=== PATIENT | female | born 1995 | race Caucasian/White ===

== ENCOUNTER 2017-09-02 00:45 | Emergency (ER) | payer BC ==
--- NOTE | 2017-09-02 00:48 | EDPHY ---
H & P Time Seen by Provider: 09/02/17 00:47 HPI/ROS: HPI CHIEF COMPLAINT: Dysuria, urinary frequency x3 hours HISTORY OF PRESENT ILLNESS: Patient 22-year-old female, presents emergency room with dysuria, urinary frequency and hematuria x3 hours. She denies any vomiting, fever back pain or significant abdominal pain. Denies being or vaginal discharge. Past Medical History: No significant medical history Past Surgical History: No significant surgical history Social History: A [employer] student, lives locally. Denies drugs alcohol tobacco. Family History: Noncontributory ROS REVIEW OF SYSTEMS: A comprehensive 10 point review of systems is otherwise negative aside from elements mentioned in the history of present illness. Exam Constitutional appears well nontoxic no acute distress, triage nursing summary reviewed, vital signs reviewed, awake/alert. Eyes normal conjunctivae and sclera, EOMI, PERRLA. HENT normal inspection, atraumatic, moist mucus membranes, no epistaxis, neck supple/ no meningismus, no raccoon eyes. Respiratory clear to auscultation bilaterally, normal breath sounds, no respiratory distress, no wheezing. Cardiovascular rate normal, regular rhythm, no murmur, no edema, distal pulses normal. Gastrointestinal soft, non-tender, no rebound, no guarding, normal bowel sounds, no distension, no pulsatile mass. Genitourinary no CVA tenderness. Musculoskeletal no midline vertebral tenderness, full range of motion, no calf swelling, no tenderness of extremities, no meningismus, good pulses, neurovascularly intact. Skin pink, warm, & dry, no rash, skin atraumatic. Neurologic awake, alert and oriented x 3, AAOx3, moves all 4 extremities equally, motor intact, sensory intact, CN II-XII intact, normal cerebellar, normal vision, normal speech. Psychiatric normal mood/affect. Heme/Lymph/Immune no lymphadenopathy. Differential Diagnosis: Includes but is not limited to in a particular order, UTI, cystitis, pyelonephritis, Medical Decision Making: Plan for this patient check UA. Re-evaluation: Source: Patient Constitutional: Initial Vital Signs Temperature (C) 36.6 C 09/02/17 00:48 Heart Rate 87 09/02/17 00:48 Respiratory Rate 16 09/02/17 00:48 Blood Pressure 106/84 H 09/02/17 00:48 O2 Sat (%) 97 09/02/17 00:48 O2 Delivery Mode Room Air Allergies/Adverse Reactions: No Known Allergies Allergy (Unverified 09/02/17 00:48) Home Medications: Medication Instructions Recorded Cephalexin [Keflex] 500 mg PO Q6H #28 cap 09/02/17 Phenazopyridine HCl [Pyridium] 200 mg PO TID #15 tab 09/02/17 Medical Decision Making - Data Points Microbiology Results: MICROBIOLOGY 09/02/17 00:30 Urine,Clean Catch Urine Culture - Preliminary Gram Neg Raffi Nonlactose Ferm. Medications Given: Discontinued Medications Cephalexin (Keflex 500 Mg Prepack#4) 1 btl TAKEHOME EDNOW ONE PRN Reason: Protocol Stop: 09/02/17 01:06 Last Admin: 09/02/17 01:19 Dose: 1 btl Cephalexin HCl (Keflex) 500 mg PO EDNOW ONE PRN Reason: Protocol Stop: 09/02/17 01:06 Last Admin: 09/02/17 01:18 Dose: 500 mg Phenazopyridine HCl (Pyridium) 200 mg PO EDNOW ONE Stop: 09/02/17 01:06 Last Admin: 09/02/17 01:18 Dose: 200 mg Departure - Departure Disposition: Home, Routine, Self-Care Clinical Impression: Urinary tract infection Qualifiers: Urinary tract infection type: acute cystitis Hematuria presence: with hematuria Qualified Code(s): N30.01 - Acute cystitis with hematuria Condition: Good Instructions: [facility] Patient Education, Infection Prevention, Cephalexin ( By mouth), Urinary Tract Infection in Women (ED) Additional Instructions: 1. Drink lots of fluids stay well-hydrated. 2. Antibiotics as prescribed. 3. Return emergency room if develops worsening abdominal pain fever back pain vomiting. Referrals: NONE *PRIMARY CARE P,. [Primary Care Provider] - As per Instructions Prescriptions: Cephalexin [Keflex] 500 mg PO Q6H #28 cap Phenazopyridine HCl [Pyridium] 200 mg PO TID #15 tab
[2017-09-02 00:51] VITALS: BP 106/84; PULSE 87; RESP 16; TEMP 97.9; O2SAT 97
[2017-09-02] MEDS ORDERED: CEPHALEXIN 500MG PREPACK#4 BTL TAKEHOME ONE (01:05)
[2017-09-02] MEDS ORDERED: PHENAZOPYRIDINE HCL 200 MG TAB PO ONE (01:05)
[2017-09-02] MEDS ORDERED: CEPHALEXIN 500 MG CAP PO ONE (01:05)
== END 2017-09-02 01:22 | disposition home or self-care (01) ==
DX: N30.01 Acute cystitis with hematuria (principal); B96.20 Unspecified Escherichia coli [E. coli] as the cause of diseases classified elsewhere